=== PATIENT | male | born 1985 | race Caucasian/White ===

== ENCOUNTER 2017-02-21 18:26 | Emergency (ER) | payer MEDICAID, MEDICARE ==
[2017-02-21 18:33] VITALS: BP 155/93
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
== END 2017-02-21 19:02 | disposition home or self-care (01) ==
LOC: ER 18:26
DX: K02.9 Dental caries, unspecified (principal); K08.89 Other specified disorders of teeth and supporting structures; F17.210 Nicotine dependence, cigarettes, uncomplicated
CPT/HCPCS: 99282

== ENCOUNTER 2017-03-24 14:13 | Emergency (ER) | payer MEDICARE ==
[2017-03-24 14:25] VITALS: BP 144/94
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
== END 2017-03-24 15:20 | disposition home or self-care (01) ==
LOC: ER 14:13
DX: K08.89 Other specified disorders of teeth and supporting structures (principal); I10 Essential (primary) hypertension; F17.200 Nicotine dependence, unspecified, uncomplicated; Z59.9 Problem related to housing and economic circumstances, unspecified
CPT/HCPCS: 99282

== ENCOUNTER 2017-04-10 15:53 | Emergency (ER) | payer BC, MEDICARE, MEDICAID ==
[2017-04-10] MEDS ORDERED: BENZONATATE 100 MG CAPSULE PO ONE (16:32)
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
[2017-04-10 17:08] VITALS: BP 132/89
== END 2017-04-10 16:59 | disposition home or self-care (01) ==
LOC: ER 15:53
DX: G89.29 Other chronic pain (principal); K08.89 Other specified disorders of teeth and supporting structures; I10 Essential (primary) hypertension
CPT/HCPCS: 99282; A9270

== ENCOUNTER 2017-04-30 15:10 | Emergency (ER) | payer MEDICARE, OTHER, BC ==
[2017-04-30 15:59] LABS: ABSOLUTE EOSINOPHILS # (AUTO) 0.1 10^3/uL (0.0-0.6); ABSOLUTE LYMPHOCYTES (AUTO) 1.9 10^3/uL (0.5-4.7); ABSOLUTE MONOCYTES (AUTO) 1.4 10^3/uL (0.1-1.4); ABSOLUTE NEUT (AUTO) 7.9 10^3/uL (1.7-8.2); BASOPHILS % (AUTO) 0.4 % (0-2); EOSINOPHILS % (AUTO) 0.8 % (0-6); HEMOGLOBIN 16.3 g/dL (13.5-17.0); HGB HCT DIFFERENCE -0.1; LYMPHOCYTES % (AUTO) 16.6 % (13-45); MEAN CORPUSCULAR HGB CONC 33.2 g/dL (32.0-36.0); MEAN CORPUSCULAR VOLUME 87 fl (80-97); MONOCYTES % (AUTO) 12.2 % (3-13); RED BLOOD COUNT 5.62 10^6/uL (4.35-5.55); RED CELL DISTRIBUTION WIDTH 13.7 % (11.5-14.0); WHITE BLOOD COUNT 11.3 10^3/uL (4.0-10.5)
[2017-04-30 16:21] LABS: ALANINE AMINOTRANSFERASE 48 U/L (21-72); ALKALINE PHOSPHATASE 78 U/L (38-126); ANION GAP 18 (5-19); ASPARTATE AMINO TRANSFERASE 46 U/L (17-59); BILIRUBIN,DIRECT 0.8 mg/dL (0.0-0.4); BILIRUBIN,TOTAL 2.6 mg/dL (0.2-1.3); BLOOD UREA NITROGEN 23 mg/dL (7-20); CALCIUM 10.1 mg/dL (8.4-10.2); CARBON DIOXIDE 23 mmol/L (22-30); CHLORIDE 100 mmol/L (98-107); CREATININE RESULT 1.05 mg/dL (0.52-1.25); GLUCOSE 93 mg/dL (75-110); POTASSIUM 4.1 mmol/L (3.6-5.0); SODIUM 140.9 mmol/L (137-145); TOTAL PROTEIN 8.8 g/dL (6.3-8.2)
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
[2017-04-30 16:22] LABS: ALCOHOL < 10 mg/dL (NONE DETECTED)
[2017-04-30 17:12] LABS: APPEARANCE,URINE SLIGHTLY-CLOUDY; BILIRUBIN,URINE NEGATIVE (NEGATIVE); GLUCOSE, URINE NEGATIVE (NEGATIVE); KETONES,URINE 80 mg/dL (NEGATIVE); LEUKOCYTE ESTERASE,URINE NEGATIVE (NEGATIVE); NITRITE,URINE NEGATIVE (NEGATIVE); PROTEIN,URINE 30 mg/dL (NEGATIVE); URINE SPECIFIC GRAVITY 1.029
[2017-04-30 17:28] LABS: URINE BARBITURATES SCREEN NEGATIVE; URINE METHADONE SCREEN NEGATIVE; URINE OPIATES LOW NEGATIVE; URINE PHENCYCLIDINE SCREEN NEGATIVE
[2017-04-30] MEDS ORDERED: NORMAL SALINE 1000 ML 1,000 ML IV ONE (18:10)
[2017-04-30] MEDS ORDERED: ZIPRASIDONE MESYLATE INJ/PF 20 MG SDV IM ONE (18:45)
[2017-04-30] MEDS ORDERED: LORAZEPAM INJ 2 MG/1 ML VIAL IM ONE (18:45)
--- NOTE | 2017-05-01 10:44 | ER Document Report ---
Doctor's Note Notes: 05/01/17 10:44 As the rounding physician for our psychiatric patients, I have reviewed the chart, vitals, lab work. Patient has been examined and noted to be stable at this time. He is much more calm and cooperative than yesterday evening, although still appears somewhat anxious. He adamantly denies thoughts of harming himself or anyone else. . I am awaiting mental health in put regarding disposition.
[2017-05-01 12:37] VITALS: BP 128/95
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
--- NOTE | 2017-05-03 09:56 | EKG REPORT ---
SEVERITY:- ABNORMAL ECG - SINUS TACHYCARDIA NONSPECIFIC T ABNORMALITIES, INFERIOR LEADS : Confirmed by: Waldemar Pickens 03-May-2017 09:54:57
== END 2017-05-01 14:50 | disposition home or self-care (01) ==
LOC: ER 15:10
DX: F25.9 Schizoaffective disorder, unspecified (principal); R45.851 Suicidal ideations; F19.10 Other psychoactive substance abuse, uncomplicated; F17.210 Nicotine dependence, cigarettes, uncomplicated; Z79.899 Other long term (current) drug therapy
CPT/HCPCS: 93005; 99285; 96372; 36415; 80307 ×4; 85025; 80053; 81001; 93010; J2060; J3486